=== PATIENT | female | born 1995 | race Caucasian/White ===

== ENCOUNTER 2018-12-30 21:20 | Emergency (ER) | payer OTHER ==
[2018-12-30 21:31] VITALS: BP 120/71; PULSE 82; TEMP 98.1; BMI 21.6
[2018-12-30] MEDS ORDERED: NITROFURANTOIN MACROCRYSTAL 50 MG CAPSULE (FP) ONE (21:37)
[2018-12-30] MEDS ORDERED: NITROFURANTOIN MACROCRYSTAL 50 MG CAPSULE (FP) PO SCH (21:45)
--- NOTE | 2018-12-30 23:01 | PDOC ---
Documentation entered by Hansel Blanco SCRIBE, acting as scribe for Lance Ramos MD. Lance Ramos MD: This documentation has been prepared by the Francis thompson Aiswarya, SCRIBE, under my direction and personally reviewed by me in its entirety. I confirm that the documentation accurately reflects all work, treatment, procedures, and medical decision making performed by me. History of Present Illness - General Chief Complaint: Urinary Problem Stated Complaint: PAIN UPON URINATION Time Seen by Provider: 12/30/18 21:35 History Source: Patient Exam Limitations: No Limitations - History of Present Illness Initial Comments: 12/30/18 21:45 The patient is a 23 year old female, with a significant PMH of UTI, who presents to the emergency department complaining of a UTI that began today. She endorses associated symptoms of burning and frequency, no relief with pyridium. The patient states she had a UTI 2 weeks go where she was treated with Bactrim. She states she gets UTI frequently ( 10x a year ) and has seen a [facility] / urologist. The patient denies chest pain, shortness of breath, headache and dizziness.Denies nausea, vomit, diarrhea and constipation.Denies dysuria and hematuria. Allergies: NKDA Past surgical history: None reported Social history: None reported PCP: None reported Past History - Past Medical History Allergies/Adverse Reactions: Allergies Allergy/AdvReac Type Severity Reaction Status Date / Time No Known Allergies Allergy Unverified 12/30/18 21:27 Home Medications: Ambulatory Orders Escitalopram Oxalate [Lexapro -] 10 mg PO DAILY 12/30/18 Nitrofurantoin Macrocrystal [Nitrofurantoin] 100 mg PO BID #6 capsule 12/30/18 Cardiac Disorders: Yes (WPW) COPD: No Psychiatric Problems: Yes - Psycho Social/Smoking Cessation Hx Smoking History: Unknown if ever smoked Have you smoked in the past 12 months: No Number of Cigarettes Smoked Daily: 0 Information on smoking cessation initiated: No Hx Alcohol Use: No Drug/Substance Use Hx: No Review of Systems - Review of Systems Able to Perform ROS?: Yes Comments:: 12/30/18 21:46 GENERAL/CONSTITUTIONAL: No fever or chills. No weakness. HEAD, EYES, EARS, NOSE AND THROAT: No change in vision. No ear pain or discharge. No sore throat. CARDIOVASCULAR: No chest pain or shortness of breath. RESPIRATORY: No cough, wheezing, or hemoptysis. GASTROINTESTINAL: No nausea, vomiting, diarrhea or constipation. GENITOURINARY: +burning and frequency. MUSCULOSKELETAL: No joint or muscle swelling or pain. No neck or back pain. SKIN: No rash NEUROLOGIC: No headache, vertigo, loss of consciousness, or change in strength/ sensation. ENDOCRINE: No increased thirst. No abnormal weight change. HEMATOLOGIC/LYMPHATIC: No anemia, easy bleeding, or history of blood clots. ALLERGIC/IMMUNOLOGIC: No hives or skin allergy. *Physical Exam - Vital Signs Last Vital Signs Temp Pulse Resp BP Pulse Ox 98.1 F 82 14 120/71 99 12/30/18 21:24 12/30/18 21:24 12/30/18 21:24 12/30/18 21:24 12/30/18 21:24 - Physical Exam Comments: 12/30/18 21:46 GENERAL: Awake, alert, and fully oriented, in no acute distress HEAD: No signs of trauma LUNGS: Breath sounds equal, clear to auscultation bilaterally. No wheezes, and no crackles HEART: Regular rate and rhythm, normal S1 and S2, no murmurs, rubs or gallops ABDOMEN: Soft, nontender, normoactive bowel sounds. No guarding, no rebound. No masses EXTREMITIES: Normal range of motion, no edema. No clubbing or cyanosis. No cords, erythema, or tenderness NEUROLOGICAL: Cranial nerves II through XII grossly intact. Normal speech, normal gait SKIN: Warm, Dry, normal turgor, no rashes or lesions noted. Medical Decision Making - Medical Decision Making 12/31/18 05:37 uti abx (Macrobid) on pyridium pt will call back to check ucx Discharge - Discharge Information Problems reviewed: Yes Clinical Impression/Diagnosis: Urinary tract infection Qualifiers: Urinary tract infection type: acute cystitis Hematuria presence: without hematuria Qualified Code(s): N30.00 - Acute cystitis without hematuria Condition: Good Disposition: HOME - Additional Discharge Information Prescriptions: Nitrofurantoin Macrocrystal [Nitrofurantoin] 100 mg PO BID #6 capsule - Follow up/Referral - Patient Discharge Instructions Patient Printed Discharge Instructions: Urinary Tract Infection - Post Discharge Activity
== END 2018-12-30 21:40 | disposition home or self-care (01) ==
LOC: FER 21:20
DX: N30.00 Acute cystitis without hematuria (principal); Z87.440 Personal history of urinary (tract) infections; I45.6 Pre-excitation syndrome; F99 Mental disorder, not otherwise specified
CPT/HCPCS: 87086; 87186; 99282-25